=== PATIENT | male | born 1990 | race Hispanic/Latino ===

== ENCOUNTER 2024-10-16 22:54 | Emergency (ER) | payer SELFPAY ==
[2024-10-16 23:37] LABS: #Basophils 0.04 10x3/uL (0.0-0.2); #Eosinophils 0.06 10x3/uL (0.0-0.7); #Monocytes 0.67 10x3/uL (0.11-0.59); #Neutrophils 4.86 10x3/uL (1.40-6.50); %Basophils 0.5 % (0.0-1.0); %Eosinophils 0.8 % (0.0-10.0); %Lymphocytes 29.4 % (21.0-51.0); %Monocytes 8.4 % (0.0-10.0); %Neutrophils 60.8 % (42.0-75.0); Hematocrit 46.0 % (42.0-52.0); Hemoglobin 16.6 g/dL (14.0-18.0); Mean Corpuscular Hemoglobin 35.1 pg (27.0-31.0); Mean Corpuscular Volume 97.3 fL (78.0-98.0); Platelet Count 290 10x3/uL (130-400); Red Blood Cell (RBC) Count 4.73 mill/uL (4.70-6.10); White Blood Cell (WBC) Count 7.99 10x3/uL (4.8-10.8)
[2024-10-16 23:41] LABS: Bacteria/HPF None Seen HPF (None Seen); CAUTI Indications for Culture Acute Hematuria; Glucose, Urine (Dipstick) Normal (Negative); Leukocyte Negative Leu/uL (Negative); Protein, Urine (Dipstick) Negative (Neg-Trace); RBC/HPF 0-3 HPF (0-3); Specific Gravity, Urine 1.009 (1.002-1.036); WBC/HPF None Seen HPF (0-3)
[2024-10-16 23:42] LABS: Urine Culture Reflex No No
[2024-10-17 00:03] LABS: ALT (SGPT) 27 U/L (Less than 45); AST (SGOT) 22 U/L (11-34); Albumin 4.5 g/dL (3.1-4.5); Alkaline Phosphatase 125 U/L (40-110); Anion Gap 13 mmol/L (10-20); BUN (Urea Nitrogen) 12 mg/dL (8.9-20.6); Bilirubin, Total 0.7 mg/dL (0.3-1.2); Calc. Creatinine Clearance 0 mL/min (70-130); Calcium 9.4 mg/dL (7.8-10.44); Carbon Dioxide 29 mmol/L (22-29); Chloride 103 mmol/L (98-107); Globulin 3.2 g/dL (2.4-3.5); Glucose 99 mg/dL (70-105); Potassium 3.8 mmol/L (3.5-5.1); Sodium 141 mmol/L (136-145)
[2024-10-17] MEDS ORDERED: Ondansetron PF 4 MG/2 ML Vial ONE (00:26)
[2024-10-17] MEDS ORDERED: Ketorolac Tromethamine 30 MG (1 mL) VIAL ONE (00:26)
[2024-10-17 01:05] LABS: Lipase 28 U/L (8-78); Magnesium 1.8 mg/dL (1.6-2.6)
[2024-10-17 02:27] LABS: HIV (1/2) Antibody/Antigen Reflxed Confirmation (NonReactive)
[2024-10-17 02:29] LABS: HIV 1/2 INDEX 532.97 S/CO (<1.00)
[2024-10-17 07:00] LABS: Chlam.trachomatis by PCR,Urine Not Detected (NotDetected); GC N.gonorrhoeae PCR,UrineVOID Not Detected (NotDetected)
[2024-10-17 11:12] LABS: Syphilis Antibody Index 0.06 S/CO (<1.00 Non-Reactive)
[2024-10-17] MEDS ORDERED: Iopamidol 370 76% 100 ML VIAL ONE (11:24)
== END 2024-10-17 02:49 | disposition home or self-care (01) ==
LOC: ERS 22:54
DX: R10.32 Left lower quadrant pain (principal)
CPT/HCPCS: 36415; 71045; 74177; 80053; 81001; 83605; 83690; 83735; 85025; 86780; 87040; 87389; 87491; 87591; 96374; 96375; J1885; J2270; J2405; Q9967